=== PATIENT | female | born 1950 | race Caucasian/White ===

== ENCOUNTER 2017-02-26 17:05 | Emergency (ER) | payer OTHER ==
[~2017-02-26] VITALS: Ht 170.2 cm; Wt 75.0 kg
[~2017-02-26 17:05] MED LIST: BACL10TA PO; BLOOD PRESSURE MED PO; DICL75 PO; LEVO.075 PO
[2017-02-26 17:07] VITALS: BP 196/93; PULSE 88; RESP 20; TEMP 97.9; O2SAT 97
--- NOTE | 2017-02-26 17:12 | PD ---
Physical Exam Time Seen by Provider: 17:09 Narrative 66yo F c/o high BP for 2-3 days. Has been taking BP medication as prescribed. +[place], dizziness, chest pain, SOB. Patient seen in triage. VS reviewed. Awaiting bed placement. Data Data Last Documented VS Vital Signs Date Time Temp Pulse Resp B/P (MAP) Pulse Ox O2 Delivery O2 Flow Rate FiO2 02/26/17 17:07 97.9 88 20 196/93 (127) 97 Room Air MDM Supervised Visit with SHITAL: Karina Damon Feb 26, 2017 17:12
[2017-02-26] MEDS ORDERED: SODIUM CHLORIDE 0.9% FLUSH 10 ML FLUSH IVF PRN (17:15)
[2017-02-26 18:02] VITALS: BP 165/69; PULSE 74; RESP 18; TEMP 98.2; O2SAT 98
[2017-02-26 18:08] VITALS: O2SAT 98
[2017-02-26 18:13] LABS: BASOPHIL % 0.2 % (0.0-2.0); EOSINOPHIL # 0.2 TH/MM3 (0-0.4); EOSINOPHIL % 1.8 % (0.0-4.0); HEMATOCRIT 41.2 % (35.0-46.0); HEMO FLAGS DIFF FINAL; LYMPH % 30.9 % (9.0-44.0); MEAN CELL VOLUME 89.7 FL (80.0-100.0); MEAN CORPUSCULAR HEMOGLOBIN 31.3 PG (27.0-34.0); MEAN CORPUSCULAR HGB CONC 34.9 % (32.0-36.0); NEUT % 61.1 % (16.0-70.0); PLATELET COUNT 215 TH/MM3 (150-450); RED CELL DISTRIBUTION WIDTH 12.7 % (11.6-17.2); WHITE BLOOD COUNT 9.8 TH/MM3 (4.0-11.0)
--- NOTE | 2017-02-26 18:19 | RADRPT ---
EXAM DATE/TIME: 02/26/2017 17:21 [facility] COMPARISON: No previous studies available for comparison. INDICATIONS : Chest pain MEDICAL HISTORY : Hypertension. Hypothyroidism. SURGICAL HISTORY : None. ENCOUNTER: Initial ACUITY: 2 days PAIN SCORE: 0/10 LOCATION: chest FINDINGS: A single view of the chest demonstrates the lungs to be symmetrically aerated without evidence of mas s, fluid infiltrate or effusion. Mild streaky opacity at the lung bases. The cardiomediastinal contou rs are unremarkable. Osseous structures are intact. CONCLUSION: Streaky opacity at the lung bases most characteristic of atelectasis. Carlitos Shah MD on February 26, 2017 at 18:17 Board Certified Radiologist. This report was verified electronically.
[2017-02-26 18:20] LABS: APTT (PATIENT) 26.2 SEC (24.3-30.1); PROTHROMBIN TIME - PATIENT 10.6 SEC (9.8-11.6)
[2017-02-26] MEDS ORDERED: PROCHLORPERAZINE INJ 10 MG/2 ML VIAL IV PUSH ONE (18:30)
[2017-02-26] MEDS ORDERED: diphenhydrAMINE HCL 50 MG/ML VIAL IV PUSH ONE (18:30)
[2017-02-26 18:32] LABS: ANION GAP 7 MEQ/L (5-15); BICARBONATE 29.8 MEQ/L (21.0-32.0); BLOOD UREA NITROGEN 17 MG/DL (7-18); CHLORIDE 101 MEQ/L (98-107); GLOMERULAR FILTRATION RATE 55 ML/MIN (>89); MAGNESIUM 2.1 MG/DL (1.5-2.5); SODIUM (NA) 138 MEQ/L (136-145)
[2017-02-26 18:35] LABS: CREATINE KINASE 62 U/L (26-192)
--- NOTE | 2017-02-26 18:56 | PD ---
HPI . Headache Chief Complaint: Hypertension Time Seen by Provider: 18:11 Travel History International Travel<30 days: No Contact w/Intl Traveler<30days: No Traveled to known affect area: No History of Present Illness HPI This patient presents to us with a several day history of headache and dizziness. She states that her head feels like pressure. She states that she feels short of breath and nervous. She is concerned about her blood pressure. She states that she does take blood pressure medication and has been compliant with it. Force no noted modifying factors. She states her headache is actually very mild. PFSH Past Medical History Arthritis: Yes Diminished Hearing: No GERD: Yes Hypertension: Yes Immunizations Current: Yes Thyroid Disease: Yes (HYPOTHYROIDISM) Menopausal: Yes Past Surgical History Hysterectomy: Yes Social History Alcohol Use: Yes (SOCIALLY- MIX DRINKS) Tobacco Use: No (QUIT 8 YRS AGO SMOKED APPROX 1/2 PPD) Substance Use: No Allergies-Medications (Allergen,Severity, Reaction): Coded Allergies: No Known Allergies (Verified , 02/26/17) Reported Meds & Prescriptions Reported Meds & Active Scripts Active Lioresal (Baclofen) 10 Mg Tab 10 Mg PO TID 7 Days Diclofenac Sodium 75 Mg Tab 75 Mg PO BID PRN Reported [Blood Pressure Med] Unknown Strength Unknown Dose PO DAILY Synthroid (Levothyroxine Sodium) 75 Mcg Tab 75 Mcg PO DAILY Review of Systems Except as stated in HPI: all other systems reviewed are Neg Eyes: No: Blurred Vision HENT: Positive: Headaches Respiratory: Positive: Shortness of Breath Psychiatric: Positive: Anxiety Physical Exam Narrative GENERAL: This patient looks very nervous SKIN: warm/dry. HEAD: Normocephalic. EYES: Pupils equal and round. No scleral icterus. No injection or drainage. ENT: No nasal bleeding or discharge. Mucous membranes pink and moist. NECK: Trachea midline. Full range of motion without pain.. CARDIOVASCULAR: Regular rate and rhythm. Heart sounds are normal. RESPIRATORY: No accessory muscle use. Clear to auscultation. Breath sounds equal bilaterally. GASTROINTESTINAL: Abdomen soft. Nontender. Bowel sounds present. Nondistended. . MUSCULOSKELETAL: No obvious deformities. NEUROLOGICAL: Awake and alert. No obvious cranial nerve deficits. Motor grossly within normal limits. Normal speech. PSYCHIATRIC: Appropriate mood and affect; insight and judgment normal. Data Data Last Documented VS Vital Signs Date Time Temp Pulse Resp B/P (MAP) Pulse Ox O2 Delivery O2 Flow Rate FiO2 02/26/17 18:08 98 Room Air 02/26/17 18:02 98.2 74 18 Orders Orders Electrocardiogram (02/26/17 17:12) Basic Metabolic Panel (Bmp) (02/26/17 17:12) Ckmb (Isoenzyme) Profile (02/26/17 17:12) Complete Blood Count With Diff (02/26/17 17:12) Magnesium (Mg) (02/26/17 17:12) Prothrombin Time / Inr (Pt) (02/26/17 17:12) Act Partial Throm Time (Ptt) (02/26/17 17:12) Troponin I (02/26/17 17:12) Chest, Single Ap (02/26/17 17:12) Ecg Monitoring (02/26/17 17:12) Iv Access Insert/Monitor (02/26/17 17:12) Oximetry (02/26/17 17:12) Oxygen Administration (02/26/17 17:12) Sodium Chloride 0.9% Flush (Ns Flush) (02/26/17 17:15) Prochlorperazine Inj (Compazine Inj) (02/26/17 18:30) Diphenhydramine Inj (Benadryl Inj) (02/26/17 18:30) Labs Laboratory Tests Test 02/26/17 17:35 White Blood Count 9.8 TH/MM3 Red Blood Count 4.60 MIL/MM3 Hemoglobin 14.4 GM/DL Hematocrit 41.2 % Mean Corpuscular Volume 89.7 FL Mean Corpuscular Hemoglobin 31.3 PG Mean Corpuscular Hemoglobin Concent 34.9 % Red Cell Distribution Width 12.7 % Platelet Count 215 TH/MM3 Mean Platelet Volume 10.3 FL Neutrophils (%) (Auto) 61.1 % Lymphocytes (%) (Auto) 30.9 % Monocytes (%) (Auto) 6.0 % Eosinophils (%) (Auto) 1.8 % Basophils (%) (Auto) 0.2 % Neutrophils # (Auto) 6.0 TH/MM3 Lymphocytes # (Auto) 3.0 TH/MM3 Monocytes # (Auto) 0.6 TH/MM3 Eosinophils # (Auto) 0.2 TH/MM3 Basophils # (Auto) 0.0 TH/MM3 CBC Comment DIFF FINAL Differential Comment Prothrombin Time 10.6 SEC Prothromb Time International Ratio 1.0 RATIO Activated Partial Thromboplast Time 26.2 SEC Blood Urea Nitrogen 17 MG/DL Creatinine 1.02 MG/DL Random Glucose 144 MG/DL Calcium Level 9.3 MG/DL Magnesium Level 2.1 MG/DL Sodium Level 138 MEQ/L Potassium Level 4.0 MEQ/L Chloride Level 101 MEQ/L Carbon Dioxide Level 29.8 MEQ/L Anion Gap 7 MEQ/L Estimat Glomerular Filtration Rate 55 ML/MIN Total Creatine Kinase 62 U/L Troponin I LESS THAN 0.02 NG/ML MDM Medical Decision Making Medical Screen Exam Complete: Yes Emergency Medical Condition: Yes Medical Record Reviewed: Yes (EKG shows a normal sinus rhythm with no acute ischemic changes. She does have a lot of artifact consistent with trembling) Differential Diagnosis Differential diagnosis of headache includes but is not limited to migraine, muscle contraction headache, brain tumor, brain bleed Narrative Course This patient presents complaining with a pressure in her head and dizziness. She is very anxious. Last Impressions Chest X-Ray 02/26/17 [id number] Signed Impressions: Service Date/Time: January 17:21 - CONCLUSION: Streaky opacity at the lung bases most characteristic of atelectasis. Carlitos Shah MD CBC & BMP Diagram 02/26/17 17:35 Calcium Level 9.3, Magnesium Level 2.1 Cardiac enzymes negative. The history, exam, diagnostic testing, and current condition do not suggest any significant pathology to warrant further testing, continued ED treatment, admission, or surgical evaluation at this point. The patient's condition is stable and appropriate for discharge. Diagnosis Primary Impression: Headache Qualified Codes: G44.209 - Tension-type headache, unspecified, not intractable Additional Instructions: See your primary care provider sometime within the next few days. Disposition: 01 DISCHARGE HOME Condition: Stable Lydia Hutchinson MD Feb 26, 2017 18:56
--- NOTE | 2017-02-28 01:06 | EKG ---
Date Performed: 02/26/2017 Time Performed: 17:36:29 PTAGE: 66 years EKG: Sinus rhythm NONSPECIFIC T-WAVE ABNORMALITY BORDERLINE ECG PREVIOUS TRACING : 10/13/2011 11.39 Compared to prior tracing no significant change DOCTOR: Gurmeet Mays Interpretating Date/Time 02/28/2017 01:04:34
== END 2017-02-26 19:20 | disposition home or self-care (01) ==
LOC: NEPE 17:05
DX: G44.209 Tension-type headache, unspecified, not intractable (principal); I10 Essential (primary) hypertension; E03.9 Hypothyroidism, unspecified; K21.9 Gastro-esophageal reflux disease without esophagitis; M19.90 Unspecified osteoarthritis, unspecified site; Z79.899 Other long term (current) drug therapy; R07.9 Chest pain, unspecified; F41.9 Anxiety disorder, unspecified
CPT/HCPCS: 71010; 80048; 82550; 83735; 84484; 85025; 85610; 85730; 93005; 96374; 96375; 99285; J0780; J1200

== ENCOUNTER 2018-05-03 07:52 | Inpatient (IN) ==
[2018-05-03] MEDS ORDERED: Chlorhexidine Gluconate 2% 1 Pack (2 Cloths) TOPICAL ONE (08:45)
[2018-05-03] MEDS ORDERED: Sodium Chlor 0.9% Inj 500 ML IV.CONT ONE (08:45)
[2018-05-03] MEDS ORDERED: Metoprolol Tartrate 25 MG Tablet PO ONE (08:45)
[2018-05-03] MEDS ORDERED: Chlorhexidine 4% Topical 120 APPLIC/120 ML Bottle TOPICAL SCH (08:45)
[2018-05-03] MEDS ORDERED: TRANEXAMIC ACID IV.SIG SCH ×2 (09:00→12:00)
[2018-05-03] MEDS ORDERED: SODIUM CHLOR 0.9% IV.SIG SCH ×2 (09:00→12:00)
[2018-05-03] MEDS ORDERED: Sodium Chlor 0.9% Inj 80 ML, Bupivacaine Liposo PF 1.3% Inj 20 ML P-ARTICULR SCH ×2 (09:00)
[2018-05-03] MEDS ORDERED: ceFAZolin 2 GM Premix Inj 2 GM/50 ML PIGGYBACK IV.SIG SCH (09:00)
[2018-05-03] MEDS ORDERED: Melatonin 5 MG Tablet PO PRN (09:30)
[2018-05-03] MEDS ORDERED: Bupivacaine/Dextrose 0.75% Inj 2 ML Ampul ONE (09:33)
[2018-05-03] MEDS ORDERED: Bisacodyl 10 MG Supp RECTAL PRN (09:34)
[2018-05-03] MEDS ORDERED: Post-op Orders (for Pharmacy) OTHER STA (09:34)
[2018-05-03] MEDS ORDERED: Zolpidem Tartrate 5 MG Tablet PO PRN (09:34)
[2018-05-03] MEDS ORDERED: Tranexamic Acid Inj 0 MG in Sodium Chlor 0.9% Inj 100 ML IV.SIG ONE (09:34)
[2018-05-03] MEDS ORDERED: Aluminum/Magnesium/Simethacone Susp 30 ML UDC PO PRN (09:34)
[2018-05-03] MEDS ORDERED: Acetaminophen 325 MG Tablet PO PRN (09:34)
[2018-05-03] MEDS ORDERED: Morphine Inj 4 MG/ML Vial IV.PUSH PRN (09:34)
--- NOTE | 2018-05-03 09:39 | P.DCO ---
- Physical Therapy Physical Therapy: Gait training Knee: Total knee, Protocol: Left, Full weight bearing Left Lower Extremity Weight Bearing: Weight bearing as tolerated Left Lower Extremity Range of Motion: Active ROM (Active, active assisted, passive range of motion. Range of motion goal is 0 degrees extension to 135 degrees of flexion.) - Nursing Nursing: Dressing changes Dressing changes: Daily dressing change, Coverderm/Primapore Additional instructions: Do not remove Dermabond Prineo (the tape that is directly on the wound). Leave the Optifoam dressing in place for 7 days. After this, daily dressing changes will be done taking care to avoid injuring or removing the Dermabond Prineo. - Certification Need for Home Health services: I have seen patient Cristal Perez on 05/03/18. My clinical findings support the need for the requested home health care services because: Need for Home Health Services: Limited ability to care for self, High risk of falls Homebound Certification: I certify that my clinical findings support that this patient is homebound because: Homebound Certification: Post-op weakness, Unsteady gait/balance, Unsafe to leave home unassisted
[2018-05-03] MEDS ORDERED: Propofol Inj 500 MG/50 ML Vial ONE (09:50)
--- NOTE | 2018-05-03 12:50 | P.OP ---
- Preoperative Diagnosis (1) Primary osteoarthritis of left knee - Postoperative Diagnosis (1) Primary osteoarthritis of left knee Date of procedure: 05/03/18 Procedure: Left total knee arthroplasty using Harper Triathlon prosthesis (uncemented). Anesthesia: regional (Adductor canal block), local (Exparel), spinal Surgeon: Alex Gagnon MD Lay Out Worker: FARSHAD Forrest Estimated blood loss (mL): 150 Pathology: none sent Operation and Findings: Indications and Findings: This 67-year-old woman has had long-standing left knee pain nonresponsive to conservative measures and prior arthroscopy. She has known rheumatoid arthritis. She has been taking anti-inflammatory agents of various types, corticosteroids orally, has had intra-articular corticosteroids and has tried exercises and ambulatory aids without benefit. Her ambulation tolerance is 1 block. She has pain with activities of daily living, especially standing from a seated position, descending stairs and descending stairs and entering and exiting a vehicle. Physical findings showed laxity in the medial compartment with crepitation on range of motion, tenderness on motion and medial tenderness. X-rays show severe loss of articular cartilage down to [id number] in the medial compartment with osteophytes and subchondral sclerosis medially. There are osteophytes throughout the knee. Operative findings: The left knee had severe loss of articular cartilage down to exposed subchondral bone with osteophytes throughout the knee, subchondral sclerosis in the medial compartment especially and some synovial proliferation. The prosthesis used was a Harper Triathlon prosthesis. The femur was a size 3, uncemented, cruciate retaining. The tibial baseplate was a size 3 Tritanium with a 9 mm, X3 polyethylene, cruciate retaining spacer. The patella was a size 32 mm asymmetric Tritanium backed. The patient was brought to the clean-air operating suite after administration of a regional anesthetic by adductor canal block. A spinal anesthetic was administered. The position was supine with a small bolster under the hip on the operative side. A pneumatic tourniquet was applied to the upper thigh. The lower extremity was prepped with alcohol, Hibiclens and ChloraPrep and draped in the usual manner with the knee draped free. An appropriate timeout procedure was carried out. An incision was made from about 3 fingerbreadths above the superior medial pole of patella down the tibial tubercle on the medial side. The incision was deepened through the subcutaneous tissue to the retinacular structures which were exposed medially and laterally. A medial retinacular incision was made from the superior medial pole of patella down the tibial tubercle and up into the quadriceps tendon, splitting it longitudinally in the medial one third. The patella was reflected. The infrapatellar fat pad was debulked. The anterior cruciate ligament was excised. Medial and lateral meniscectomies were initiated. Fenestrations were made in the distal femur and proximal tibia for intramedullary referencing guides. The distal femoral cutting guide and jig were assembled for a 5, 8 mm cut. When this was fit into position,the cutting block was stabilized with pins. The jig was removed. The distal femoral cut was completed with the oscillating saw. The sizing guide was positioned in place along Whitesides line and the epicondylar axis and stabilized with pins. The femoral size was determined as noted above. The 4-in-1 cutting block was positioned in place. Anterior and posterior cuts were made followed by posterior and anterior chamfer cuts taking care to prevent injury to ligamentous structures. Osteophytes were trimmed from the distal femur. A bone plug was placed into the fenestration of the distal femur. The proximal tibia was exposed. The medial and lateral meniscectomies were completed. The proximal tibial cutting guide was positioned in place and stabilized with a pin for rotation. The depth of cut was verified with a stylus off the high side. The cutting block was stabilized with pins. The jig was removed. The depth of cut was verified and adjusted appropriately with the use of the spacer block. The proximal tibial cut was made with the oscillating saw taking care to prevent injury to neurovascular and ligamentous structures. Proximal tibial bone was removed. Local anesthetic was administered with Exparel in the posterior capsule. The tibial baseplate trial was positioned in place. After verifying the appropriate size, the base plate trial was positioned in place along with its spacer. The femoral component was impacted into place. The alignment was checked. The tibial baseplate was pinned in place on the tibia. Attention was directed to the patella. The patella drill guide was positioned in place for the appropriate sized patella. Patellar drilling was then carried out. The trial patella was positioned in place. The knee was taken through a range of motion which was easily 0 extension to 145 degrees with pressure and 140 degrees by gravity. The patella trial was removed. The femoral drill holes were made. The femoral trials were removed. The tibial spacer was removed. A bone plug was placed into the proximal tibia. The tibial punch was impacted through the proximal tibial punch guide. This was all removed followed by placement of the tibial drill guide. The tibial drill holes were made. The guide was removed. The cut ends of bone were cleaned with pulse lavage. The tibial baseplate was impacted into place and seated appropriately. The spacer was inserted. The the femoral component was impacted into place and seated appropriately. The patella component was seated with the patellar vice and tightened appropriately. The knee was taken through a range of motion which was comparable to the previous range of motion with excellent stability in flexion and extension and appropriate patellofemoral tracking. The remainder of the Exparel was injected throughout the knee as a local anesthetic. Drains were brought out the superior lateral aspect of the suprapatellar pouch. Wound closure commenced using 0 Vicryl interrupted [id number] sutures for the capsular and fascial structures, 2-0 Vicryl interrupted simple sutures with buried knots for the subcutaneous tissues and 4-0 Monocryl, continuous subcuticular closure for the skin. The wound was dressed with Dermabond Prineo followed by a dry sterile dressing. Sterile soft roll with a cooling pad and Iam bandage from the base of the toes to mid thigh were applied. Patient was transferred from the operating room to the recovery room in satisfactory condition having tolerated procedure well. Counts were correct. Specimens: None. Estimated blood loss: 150 mL
[2018-05-03] MEDS ORDERED: fentaNYL Citrate Inj 100 MCG/2 ML Ampul ONE (13:32)
--- NOTE | 2018-05-03 14:07 | XR ---
EXAM DATE: 05/03/2018 1:55 PM EST AGE/SEX: 67 years / Female INDICATIONS: Post op left knee. CLINICAL DATA: This is the patient's initial encounter. Patient reports that signs and symptoms have been present for 1 day and indicates a pain score of Nonresponsive. MEDICAL/SURGICAL HISTORY: None. None. COMPARISON: POI, XR KNEE COMPLETE, LEFT, 04/13/2018. . FINDINGS: Views of the left knee demonstrates left knee arthroplasty. Drain is seen anteriorly. No hardware loo sening or fracture CONCLUSION: Left knee arthroplasty. Electronically signed by: Saul Schroeder MD 05/03/2018 2:06 PM EST
[2018-05-03] MEDS: Ketorolac Inj 30 MG/ML (IVP) Vial IV.PUSH SCH ×3 (14:29→23:00)
--- NOTE | 2018-05-03 15:48 | P.CON ---
History of Present Illness Service: [facility] Hospitalist service Consult date: 05/03/18 Requesting Physician: Alex Gagnon Reason for Consult: Medical management and postop evaluation post total knee replacement Primary Care Provider: Erinn Wadsworth DO Chief Complaint: Elective surgery for right knee pain History of Present Illness: Patient is a very pleasant 67-year-old female with known history of hypertension , GERD, hypothyroidism, rheumatoid arthritis on methotrexate, who is admitted under Dr. Gagnon service today and underwent left complete total knee replacement. Patient has history of knee replacement in 2006. Patient apparently has been having increasing pain on this knee for the past couple of months now and on outpatient evaluation was noted to be bone to bone. Increasing difficulty in ambulation and mainly pain which prompted the surgery. Patient currently seen postop in her room is awake alert no complaints of pain at present. Very motivated with physical therapy. States her primary care physician is Dr. Wadsworth from [place]. She has history of rheumatoid arthritis followed by Dr. Boyle.. She is on methotrexate 6 pills once a week and has been on hold prior to surgery. She is also taking 2 pain meds at home for pain control History of smoking quit 11 years ago very occasional rare alcohol use, history of hysterectomy 1998 had Review of Systems Denies any fever chills chest pain or shortness of breath denies any melena or hematochezia or any bleeding tendencies patient baseline is ambulatory independently however lately has been using a cane because of increasing pain of left knee when walking PMF - History History Provided By: Patient - Medical History Medical History: Medical History (Last Reviewed 05/03/18 @ 13:02 by Ivet Prabhakar) Arthritis GERD (gastroesophageal reflux disease) Hx of hysterectomy Hypertension Hypothyroidism Pain in knee joint Rheumatoid arthritis - Surgical History Surgical History: Surgical History (Last Reviewed 05/03/18 @ 13:02 by Ivet Prabhakar) History of arthroscopy of left knee Hx of cataract removal with insertion of prosthetic lens - Tobacco History Second Hand Smoke Exposure: No Smoking Status: Former smoker - Alcohol History How Often Do You Have a Drink Containing Alcohol: 2 to 3 times a week - Substance Use History Substance History: No History of Abuse - Travel History Recent Travel in the [facility] Within the Last 8 Weeks: No Recent Travel Out of the Country Within the Last 8 Weeks: No Medications and Allergies Active Medications: Active Medications Acetaminophen (Tylenol) 650 mg PO Q6H PRN PRN Reason: Pain Less Than 3 On Scale Hydrocodone Bitart/Acetaminophen ([place] 7.5/325) 1 tab PO Q4H PRN PRN Reason: PAIN SCALE 4 TO 6 MODERATE Hydrocodone Bitart/Acetaminophen ([place] 7.5/325) 2 tab PO Q6H PRN PRN Reason: PAIN SCALE 7 TO 10 SEVERE Al Hydrox/Mg Hydrox/Simethicone (Mag-Al Plus Susp Liq) 30 ml PO Q6H PRN PRN Reason: INDIGESTION Al Hydroxide/Mg Hydroxide (Milk Of Magnesia Liq) 30 ml PO BID PRN PRN Reason: Mild Constipation Ascorbic Acid (Vitamin C) 1,000 mg PO DAILY [facility] Aspirin (Aspirin Chew) 81 mg PO BID [facility] Bisacodyl (Dulcolax Supp) 10 mg RECTAL DAILY PRN PRN Reason: SEVERE CONSITIPATION Chlorhexidine Gluconate (Hibiclens 4% Topical) 1 applicatio TOPICAL ONCE [facility] Stop: 05/07/18 08:44 Last Admin: 05/03/18 08:05 Dose: 1 applicatio Diphenhydramine HCl (Benadryl) 25 mg PO Q6H PRN PRN Reason: ITCHING Folic Acid (Folic Acid) 1 mg PO DAILY [facility] Furosemide (Lasix) 20 mg PO DAILY [facility] Cefazolin Sodium/Dextrose (Ancef 2 Gm Premix Inj) 2 gm in 50 mls @ 100 mls/hr IV.SIG CUSTOM HOME INSTALLER [facility] Stop: 05/07/18 08:59 Last Infusion: 05/03/18 11:32 Dose: Infused Tranexamic Acid 852 mg/ Sodium (Chloride) 108.52 mls @ 200 mls/hr IV.SIG ONCE [facility] Stop: 05/03/18 18:00 Last Infusion: 05/03/18 14:35 Dose: Infused Cefazolin Sodium/Dextrose (Ancef 1 Gm Premix Inj) 1 gm in 50 mls @ 100 mls/hr IV.SIG Q6H [facility] Stop: 05/04/18 05:29 Lactated Ringer's (Lr 1000 Ml Inj) 1,000 mls @ 80 mls/hr IV.CONT .[id number] [facility] Last Admin: 05/03/18 13:00 Dose: Not Given Ketorolac Tromethamine (Toradol Inj) 15 mg IV.PUSH Q6H [facility] Stop: 05/05/18 03:46 Last Admin: 05/03/18 14:29 Dose: Not Given Lactulose (Lactulose Liq) 30 ml PO DAILY PRN PRN Reason: SEVERE CONSITIPATION Levothyroxine Sodium (Synthroid) 112 mcg PO DAILY@0600 [facility] Lisinopril (Prinivil) 20 mg PO HS [facility] Melatonin (Melatonin) 5 mg PO HS PRN PRN Reason: Insomnia Miscellaneous Information ([facility] Information) 1 each OTHER UNSCH PRN PRN Reason: SEE LABEL COMMENTS Stop: 05/04/18 13:21 Morphine Sulfate (Morphine Inj) 2 mg IV.PUSH Q3H PRN PRN Reason: BREAKTHROUGH PAIN Multivitamins/Minerals (Theragran-M) 1 tab PO DAILY [facility] Ondansetron HCl (Zofran Odt) 4 mg PO Q6H PRN PRN Reason: NAUSEA OR VOMITING Pantoprazole Sodium (Protonix) 20 mg PO BID [facility] Potassium Chloride (K-Dur) 20 meq PO BID [facility] Prednisone (Deltasone) 5 mg PO DAILY [facility] Senna/Docusate Sodium (Wilma-Colace) 1 tab PO BID [facility] Sennosides (Senokot) 17.2 mg PO BID PRN PRN Reason: Moderate Constipation Sodium Chloride (Ns Flush) 2 ml IV.FLUSH BID [facility] Sodium Chloride (Ns Flush) 2 ml IV.FLUSH PRN PRN PRN Reason: FLUSH AFTER USING IV ACCESS Vitamin B Complex/Vitamin C (Allbee C) 1 tab PO DAILY [facility] Zolpidem Tartrate (Ambien) 5 mg PO HS PRN PRN Reason: INSOMNIA Allergies Allergy/AdvReac Type Severity Reaction Status Date / Time No Known Allergies Allergy Verified 05/03/18 08:25 Home Medications Medication Instructions Recorded Confirmed Type ascorbic acid (vitamin C) [Vitamin 1,000 mg PO DAILY 04/22/18 05/03/18 History C] folic acid 1 mg PO DAILY 04/22/18 05/03/18 History furosemide 20 mg PO DAILY 04/22/18 05/03/18 History garlic 1,000 mg PO DAILY 04/22/18 05/03/18 History glucosamine sulfate [Glucosamine] 500 mg PO BID 04/22/18 05/03/18 History levothyroxine 112 mcg PO DAILY 04/22/18 05/03/18 History lisinopril 20 mg PO HS 04/22/18 05/03/18 History melatonin 5 mg PO HS PRN 04/22/18 05/03/18 History methotrexate sodium 15 mg PO QWEEK 04/22/18 05/03/18 History jcorbcjmymyf-nna-mjpx-FA-vit K 1 tab PO DAILY 04/22/18 05/03/18 History [Adults Multivitamin] nabumetone 500 mg PO HS 04/22/18 05/03/18 History naproxen 500 mg PO BID PRN 04/22/18 05/03/18 History omega 4-ylh-wqh-fish oil [Fish Oil] 2 cap PO DAILY 04/22/18 05/03/18 History omeprazole 20 mg PO BID 04/22/18 05/03/18 History potassium chloride [K-Tab] 20 meq PO BID 04/22/18 05/03/18 History prednisone 5 mg PO DAILY 04/22/18 05/03/18 History vitamin B comp with C no.4 [Super 1 tab PO DAILY 04/22/18 05/03/18 History B Complex + C] Physical Exam Vital signs: Vital Signs 05/03/18 08:33 05/03/18 09:02 05/03/18 09:40 Temperature 98.1 F Pulse Rate 81 75 68 Respiratory Rate 18 16 Blood Pressure 134/73 117/63 Pulse Oximetry 97 95 97 05/03/18 13:23 05/03/18 13:30 05/03/18 13:45 Temperature 97.6 F Pulse Rate 66 67 68 Respiratory Rate 18 18 18 Blood Pressure 114/63 111/61 115/71 Pulse Oximetry 95 98 98 05/03/18 14:00 05/03/18 14:15 05/03/18 14:22 Temperature Pulse Rate 66 66 Respiratory Rate 18 18 Blood Pressure 125/64 131/69 Pulse Oximetry 95 94 L 100 05/03/18 14:30 05/03/18 15:00 Temperature 98.3 F Pulse Rate 66 67 Respiratory Rate 19 19 Blood Pressure 139/67 136/68 Pulse Oximetry 97 97 Intake & Output 05/02/18 05/03/18 05/03/18 18:59 06:59 18:59 Intake Total 1767.04 / 1767.04 Output Total 220 / 220 Balance 1547.04 / 1547.04 Weight 85.2 kg Intake: IV 1267.04 / 1267.04 LR 1000 mL Inj 1,000 ML @ 30 1000 / 1000 mls/hr IV.CONT .Q24H [facility] Rx#: [id number] Cyklokapron Inj 852 MG In NS 217.04 / 217.04 Inj 100 ML @ 200 mls/hr IV.SIG ONCE [facility] Rx#:[id number] Ancef 2 GM Premix Inj 2 gm In 50 / 50 50 ml @ 100 mls/hr IV.SIG CUSTOM HOME INSTALLER [facility] Rx#:[id number] Anesthesia Amount 500 / 500 Output: Estimated Blood Loss 150 / 150 Wound Drainage 70 / 70 # 1 Left Knee Hemovac 70 / 70 Other: Weight On Admission 85.2 kg Narrative: Awake alert oriented x3 not in any form of distress blood pressure 131/68 heart rate of 69 temperature 98.3 HEENT exam anicteric sclerae pink palpebral conjunctiva moist oral mucosa Neck supple no nuchal rigidity Bilateral breath sounds equal no rales no wheezes Regular rhythm Abdomen is soft nontender with good bowel sounds Extremities. Left knee with postop dressing in place Moves both feet equally. Grossly no sensory deficit gait testing deferred Assessment and Plan - Plan 67-year-old female Status post left total knee replacement Management per orthopedic surgery. Pain management per primary service PT daily History of hypertension continue on lisinopril 20 mg at bedtime. Furosemide 20 mg daily. Potassium supplements History of hypothyroidism. Continue on Synthroid 112 mcg daily GERD continue on omeprazole 20 mg twice a day History of rheumatoid arthritis on methotrexate once a week as OP Continue on prednisone 5 mg daily maintenance dose. Outpatient follow-up with Dr. Cali - her host DVT prophylaxis aspirin 81 mg twice daily per orthopedic service Thank you for this consult will follow patient in-house with you Discharge planning. Patient plans to go home with home health care
[2018-05-03] MEDS: ceFAZolin 1 GM Premix Inj 1 GM/50 ML FROZ.PIGGY IV.SIG SCH (17:59)
[2018-05-03] MEDS: Senna/Docusate Sodium 8.6/50 MG Tablet PO SCH (20:35)
[2018-05-03] MEDS: Pantoprazole Sodium 20 MG DR Tablet PO SCH (20:35)
[2018-05-03] MEDS ORDERED: Non-Formulary Drug (Glucosamine Sulfate [Glucosamine] 500 MG) PO SCH (21:00)
[2018-05-03] MEDS ORDERED: Lisinopril 20 MG Tablet PO SCH (21:00)
[2018-05-04] MEDS: ceFAZolin 1 GM Premix Inj 1 GM/50 ML FROZ.PIGGY IV.SIG SCH ×2 (00:18→04:40)
[2018-05-04] MEDS: Ketorolac Inj 30 MG/ML (IVP) Vial IV.PUSH SCH ×3 (04:00→17:45)
--- NOTE | 2018-05-04 05:59 | P.PNOP ---
Subjective Interval history: Postop day #1 She is doing well. She has minimal complaints related to the knee. Has been out of bed walking at least 3 times. Physical therapy reports that the ambulation distance was 30 feet. The range of motion was -5 degrees of extension to 40 degrees of flexion. Physical Exam Vital signs: Vital Signs 05/03/18 08:33 05/03/18 09:02 05/03/18 09:40 Temperature 98.1 F Pulse Rate 81 75 68 Respiratory Rate 18 16 Blood Pressure 134/73 117/63 Pulse Oximetry 97 95 97 05/03/18 13:23 05/03/18 13:30 05/03/18 13:45 Temperature 97.6 F Pulse Rate 66 67 68 Respiratory Rate 18 18 18 Blood Pressure 114/63 111/61 115/71 Pulse Oximetry 95 98 98 05/03/18 14:00 05/03/18 14:15 05/03/18 14:22 Temperature Pulse Rate 66 66 Respiratory Rate 18 18 Blood Pressure 125/64 131/69 Pulse Oximetry 95 94 L 100 05/03/18 14:30 05/03/18 15:00 05/03/18 19:35 Temperature 98.3 F 97.9 F Pulse Rate 66 67 79 Respiratory Rate 19 19 17 Blood Pressure 139/67 136/68 130/70 Pulse Oximetry 97 97 94 L 05/04/18 00:15 Temperature 97.6 F Pulse Rate 75 Respiratory Rate 17 Blood Pressure 140/69 Pulse Oximetry 95 Intake & Output 05/03/18 05/03/18 05/04/18 06:59 18:59 06:59 Intake Total 1817.04 / 1817.04 50 / 50 Output Total 220 / 220 Balance 1597.04 / 1597.04 50 / 50 Weight 85.2 kg Intake: IV 1317.04 / 1317.04 50 / 50 LR 1000 mL Inj 1,000 ML @ 30 1000 / 1000 mls/hr IV.CONT .Q24H [facility] Rx#: [id number] Cyklokapron Inj 852 MG In NS 217.04 / 217.04 Inj 100 ML @ 200 mls/hr IV.SIG ONCE [facility] Rx#:[id number] Ancef 1 GM Premix Inj 1 gm In 50 / 50 50 / 50 50 ml @ 100 mls/hr IV.SIG Q6H [facility] Rx#:[id number] Ancef 2 GM Premix Inj 2 gm In 50 / 50 50 ml @ 100 mls/hr IV.SIG LITIGATION LEGAL ASSISTANT [facility] Rx#:[id number] Anesthesia Amount 500 / 500 Output: Estimated Blood Loss 150 / 150 Wound Drainage 70 / 70 # 1 Left Knee Hemovac 70 / 70 Other: Date of Last Bowel Movement 05/02/18 Weight On Admission 85.2 kg Narrative: She is resting comfortably, supine in bed. The dressing is dry and intact. Her neurovascular status is intact. Results - Labs Laboratory Results - last 24 hr 05/03/18 08:31 Blood Type O Negative Blood Type Recheck Required Antibody Screen Negative - Imaging Impressions Knee X-Ray 05/03/18 09:30 CONCLUSION: Left knee arthroplasty. - Procedures Left total knee arthroplasty using [place] Triathlon prosthesis (uncemented) on 05/03/2018. Assessment and Plan - Ortho Post Op Day # 1 - Problem List (1) Status post total left knee replacement not using cement Code(s): Z96.652 - Presence of left artificial knee joint Status: Acute - Assessment and Plan Condition: Good. Orthopedically stable. DVT prophylaxis: TEDs, aspirin, sequentials. Discharge plans: Home with home health care. An appointment was scheduled through the office. Prescriptions: [place] 7.5/325; Patient is having significant pain caused by a total knee arthroplasty which will last more than 3 days. Trial of Tylenol has not helped. I believe that it is medically necessary to treat patients pain because it is affecting patients ability to participate in postoperative rehabilitation and perform activities of daily living in a comfortable and efficient manner. I have consulted [place] database prior to making this prescription.
[2018-05-04] MEDS ORDERED: Levothyroxine 112 MCG Tablet PO SCH (06:00)
--- NOTE | 2018-05-04 06:18 | P.DS ---
Date of admission: 05/03/18 09:29 Primary care physician: Erinn Wadsworth DO Attending physician on discharge: Alex Gagnon Anticipated date of discharge: 05/04/18 Brief History from admission: This 67-year-old woman has had long-standing rheumatoid arthritis. She has arthritis in her left knee that has been nonresponsive to conservative measures including anti-inflammatory agents, injections, ambulatory aids. Findings showed genu varum with tenderness in the medial compartment, medial instability , palpable osteophytes. X-rays showed severe arthritis in the knee with loss of articular cartilage to zhca-[id number]-iapp in the medial compartment, tricompartmental osteophytes, subchondral sclerosis. DS: Diagnosis - Discharge Diagnosis (1) Status post total left knee replacement not using cement Status: Acute Diagnosis: Principal (2) Primary osteoarthritis of left knee Status: Chronic Diagnosis: Principal (3) Rheumatoid arthritis involving both knees Status: Acute Diagnosis: Secondary DS: Medications - Discharge Medications Prescriptions: hydrocodone-acetaminophen 1 tab PO Q4H PRN 7 Days #42 tab PRN Reason: Pain DS: Summary Hospital Course: The patient was admitted as noted above. The above noted operative procedure was carried out that day. Preoperatively prophylactic antibiotics were administered Ancef according to protocol. These were continued postoperatively. The patient also received tranexamic acid to help with hemostasis according to protocol. In the postanesthesia care unit mechanical methods of DVT prophylaxis in the form of MARIA A stockings and sequentials were initiated. Physical therapy was initiated on the day of surgery. On postoperative day #1 physical therapy continued. DVT prophylaxis with aspirin 81 mg was initiated at this time. The patient continued physical therapy throughout the hospitalization. The distance walked and range of motion improved throughout the hospitalization. The patient was discharged on postoperative day 1 with the disposition being to home with home health care. An appointment for follow-up was made prior to admission. - Time Spent with Patient Total time spent providing and/or coordinating discharge services: Less than 30 minutes - Quality: VTE Deep Vein Thrombosis/Pulmonary Embolism Present on Admission: No Exam Vital signs: Vital Signs 05/03/18 08:33 05/03/18 09:02 05/03/18 09:40 Temperature 98.1 F Pulse Rate 81 75 68 Respiratory Rate 18 16 Blood Pressure 134/73 117/63 Pulse Oximetry 97 95 97 05/03/18 13:23 05/03/18 13:30 05/03/18 13:45 Temperature 97.6 F Pulse Rate 66 67 68 Respiratory Rate 18 18 18 Blood Pressure 114/63 111/61 115/71 Pulse Oximetry 95 98 98 05/03/18 14:00 05/03/18 14:15 05/03/18 14:22 Temperature Pulse Rate 66 66 Respiratory Rate 18 18 Blood Pressure 125/64 131/69 Pulse Oximetry 95 94 L 100 05/03/18 14:30 05/03/18 15:00 05/03/18 19:35 Temperature 98.3 F 97.9 F Pulse Rate 66 67 79 Respiratory Rate 19 19 17 Blood Pressure 139/67 136/68 130/70 Pulse Oximetry 97 97 94 L 05/04/18 00:15 05/04/18 04:50 Temperature 97.6 F 97.6 F Pulse Rate 75 72 Respiratory Rate 17 16 Blood Pressure 140/69 138/65 Pulse Oximetry 95 95 Intake & Output 05/03/18 05/03/18 05/04/18 06:59 18:59 06:59 Intake Total 1817.04 / 1817.04 50 / 50 Output Total 220 / 220 Balance 1597.04 / 1597.04 50 / 50 Weight 85.2 kg Intake: IV 1317.04 / 1317.04 50 / 50 LR 1000 mL Inj 1,000 ML @ 30 1000 / 1000 mls/hr IV.CONT .Q24H [facility] Rx#: [id number] Cyklokapron Inj 852 MG In NS 217.04 / 217.04 Inj 100 ML @ 200 mls/hr IV.SIG ONCE [facility] Rx#:[id number] Ancef 1 GM Premix Inj 1 gm In 50 / 50 50 / 50 50 ml @ 100 mls/hr IV.SIG Q6H [facility] Rx#:[id number] Ancef 2 GM Premix Inj 2 gm In 50 / 50 50 ml @ 100 mls/hr IV.SIG DATA SYSTEMS ANALYST [facility] Rx#:[id number] Anesthesia Amount 500 / 500 Output: Estimated Blood Loss 150 / 150 Wound Drainage 70 / 70 # 1 Left Knee Hemovac 70 / 70 Other: Date of Last Bowel Movement 05/02/18 Weight On Admission 85.2 kg Narrative: She is resting comfortably, supine in bed. Dressing is dry and intact. Her neurovascular status is intact. Results Procedures completed during hospitalization: Left total knee arthroplasty using [place] Triathlon prosthesis (uncemented) on 05/03/2018. Labs on day of discharge: Labs from last 24 hours 05/03/18 08:31 Blood Type O Negative Blood Type Recheck Required Antibody Screen Negative - Impressions ITS Impressions Knee X-Ray 05/03/18 09:30 CONCLUSION: Left knee arthroplasty. Discharge Plan - Discharge Disposition Patient Disposition: W/Home Health Service - Discharge Condition Condition: Stable - Discharge Order Discharge Orders: Discharge Order (Routine); Ordered 05/04/18 Ordered By: Alex Gagnon - Discharge Details Anticipated Discharge Date: 05/04/18 - Physicians Team Primary Care Provider: Erinn Wadsworth Attending Provider: Alex Gagnon Other Providers: [employer],Insurance ; Flo Orozco MD - Rxs /Orders / Referrals /Forms Prescriptions: New aspirin 81 mg Tablet,Chewable 81 mg PO BID RF: 0 hydrocodone-acetaminophen 7.5-325 mg Tablet 1 tab PO Q4H PRN (Reason: Pain) 7 Days Qty: 42 RF: 0 Continue ascorbic acid (vitamin C) [Vitamin C] 1,000 mg Tablet Extended Release 1,000 mg PO DAILY folic acid 1 mg Tablet 1 mg PO DAILY furosemide 20 mg Tablet 20 mg PO DAILY garlic 1,000 mg Capsule 1,000 mg PO DAILY glucosamine sulfate [Glucosamine] 500 mg Tablet 500 mg PO BID levothyroxine 112 mcg Tablet 112 mcg PO DAILY lisinopril 20 mg Tablet 20 mg PO HS melatonin 5 mg Tablet 5 mg PO HS PRN (Reason: Insomnia) methotrexate sodium 2.5 mg Tablet 15 mg PO QWEEK yhhdzhcrhbsu-rca-aenw-FA-vit K [Adults Multivitamin] 18 mg iron-400 mcg-25 mcg Tablet 1 tab PO DAILY nabumetone 500 mg Tablet 500 mg PO HS naproxen 500 mg Tablet 500 mg PO BID PRN (Reason: Pain) omega 8-nai-gqq-fish oil [Fish Oil] 1,000 mg (120 mg-180 mg) Capsule 2 cap PO DAILY omeprazole 20 mg Tablet,Delayed Release (Dr/Ec) 20 mg PO BID potassium chloride [K-Tab] 20 mEq Tablet Extended Release 20 meq PO BID prednisone 5 mg Tablet 5 mg PO DAILY vitamin B comp with C no.4 [Super B Complex + C] 150 mg Tablet 1 tab PO DAILY Referrals: Alex Gagnon MD [Physician] - See Instructions Erinn Wadsworth DO [Primary Care Provider] - See Instructions - Discharge Instructions Patient Printed Instructions: Knee Replacement (DC)
[2018-05-04 08:10] LABS: Hematocrit 34.3 % (35.0-46.0)
[2018-05-04] MEDS ORDERED: predniSONE 5 MG Tablet PO SCH (09:00)
[2018-05-04] MEDS ORDERED: Non-Formulary Drug (Omega 3-Dha-Epa-Fish Oil [Fish Oil] 2 CAP) PO SCH (09:00)
[2018-05-04] MEDS ORDERED: Folic Acid 1 MG Tablet PO SCH (09:00)
[2018-05-04] MEDS ORDERED: Vitamin B Complex/Vitamin C Tablet PO SCH (09:00)
[2018-05-04] MEDS ORDERED: GARLIC 1000 MG PO SCH (09:00)
[2018-05-04] MEDS ORDERED: Multivitamin/Minerals Therapeutic Tablet PO SCH (09:00)
[2018-05-04] MEDS ORDERED: Furosemide 20 MG Tablet PO SCH (09:00)
[2018-05-04] MEDS ORDERED: Ascorbic Acid 500 MG Tablet PO SCH (09:00)
--- NOTE | 2018-05-04 09:25 | P.PN ---
Subjective Interval history: Patient is a very pleasant 67-year-old female with known history of hypertension , GERD, hypothyroidism, rheumatoid arthritis on methotrexate, who is admitted under Dr. Gagnon service today and underwent left complete total knee replacement. Patient has history of knee replacement in 2006. Patient apparently has been having increasing pain on this knee for the past couple of months now and on outpatient evaluation was noted to be bone to bone. Increasing difficulty in ambulation and mainly pain which prompted the surgery. Patient currently seen postop in her room is awake alert no complaints of pain at present. Very motivated with physical therapy. States her primary care physician is Dr. Wadsworth from [place]. She has history of rheumatoid arthritis followed by Dr. Boyle.. She is on methotrexate 6 pills once a week and has been on hold prior to surgery. She is also taking 2 pain meds at home for pain control History of smoking quit 11 years ago very occasional rare alcohol use, history of hysterectomy. 05/04: Seen in her bedroom already recommended for discharge by Attending physician, no further recommendations by medical team no nausea, vomit or diarrhea, discussed with patient about weight loss warranted for her to improve her Joint disease. Physical Exam Vital signs: Vital Signs 05/03/18 09:40 05/03/18 13:23 05/03/18 13:30 Temperature 97.6 F Pulse Rate 68 66 67 Respiratory Rate 16 18 18 Blood Pressure 117/63 114/63 111/61 Pulse Oximetry 97 95 98 05/03/18 13:45 05/03/18 14:00 05/03/18 14:15 Temperature Pulse Rate 68 66 66 Respiratory Rate 18 18 18 Blood Pressure 115/71 125/64 131/69 Pulse Oximetry 98 95 94 L 05/03/18 14:22 05/03/18 14:30 05/03/18 15:00 Temperature 98.3 F Pulse Rate 66 67 Respiratory Rate 19 19 Blood Pressure 139/67 136/68 Pulse Oximetry 100 97 97 05/03/18 19:35 05/04/18 00:15 05/04/18 04:50 Temperature 97.9 F 97.6 F 97.6 F Pulse Rate 79 75 72 Respiratory Rate 17 17 16 Blood Pressure 130/70 140/69 138/65 Pulse Oximetry 94 L 95 95 05/04/18 08:00 Temperature 98.0 F Pulse Rate 79 Respiratory Rate 17 Blood Pressure 142/72 H Pulse Oximetry 95 Intake & Output 05/03/18 05/04/18 05/04/18 18:59 06:59 18:59 Intake Total 1817.04 / 1817.04 770 / 770 Output Total 220 / 220 Balance 1597.04 / 1597.04 770 / 770 Weight 85.2 kg 85.2 kg Intake: IV 1317.04 / 1317.04 50 / 50 LR 1000 mL Inj 1,000 ML @ 30 1000 / 1000 mls/hr IV.CONT .Q24H [facility] Rx#: [id number] Cyklokapron Inj 852 MG In NS 217.04 / 217.04 Inj 100 ML @ 200 mls/hr IV.SIG ONCE [facility] Rx#:[id number] Ancef 1 GM Premix Inj 1 gm In 50 / 50 50 / 50 50 ml @ 100 mls/hr IV.SIG Q6H [facility] Rx#:[id number] Ancef 2 GM Premix Inj 2 gm In 50 / 50 50 ml @ 100 mls/hr IV.SIG JAVA JSF DEVELOPER [facility] Rx#:[id number] Oral 720 / 720 Anesthesia Amount 500 / 500 Output: Estimated Blood Loss 150 / 150 Wound Drainage 70 / 70 # 1 Left Knee Hemovac 70 / 70 Other: # Voids 3 Date of Last Bowel Movement 05/02/18 Weight On Admission 85.2 kg Narrative: Awake alert oriented x3 not in any form of distress blood pressure 131/68 heart rate of 69 temperature 98.3 HEENT exam anicteric sclerae pink palpebral conjunctiva moist oral mucosa Neck supple no nuchal rigidity Bilateral breath sounds equal no rales no wheezes Regular rhythm Abdomen is soft nontender with good bowel sounds Extremities. Left knee with postop dressing in place Moves both feet equally. Grossly no sensory deficit gait testing deferred Results - Labs CBC & Chem 7: 05/04/18 07:05 Laboratory Results - last 24 hr 05/03/18 05/04/18 08:31 07:05 Hgb 12.0 Hct 34.3 L Blood Type Recheck Required Antibody Screen Negative - Imaging Impressions Knee X-Ray 05/03/18 09:30 CONCLUSION: Left knee arthroplasty. - Procedures Left total knee arthroplasty using [place] Triathlon prosthesis (uncemented) on 05/03/2018. Assessment and Plan - Plan 67-year-old female Status post left total knee replacement Management per orthopedic surgery. Pain management per primary service PT daily, okay to discharge from Orthopedic client renewal specialist History of hypertension Mild Uncontrol due to pain. continue on lisinopril 20 mg at bedtime. Furosemide 20 mg daily. Potassium supplements History of hypothyroidism. Continue on Synthroid 112 mcg daily GERD continue on omeprazole 20 mg twice a day History of rheumatoid arthritis on methotrexate once a week as OP Continue on prednisone 5 mg daily maintenance dose. Outpatient follow-up with Dr. Cali - her nurse anesthetist Obesity strongly recommended diet and exercise. DVT prophylaxis aspirin 81 mg twice daily per orthopedic service Signed off the case. Code Status: Full code. Discussed Condition With: Patient and Nurse Miss León Discharge Planning: Hospitalist clear for discharge.
[2018-05-04] MEDS: Senna/Docusate Sodium 8.6/50 MG Tablet PO SCH (10:20)
[2018-05-04] MEDS: Pantoprazole Sodium 20 MG DR Tablet PO SCH (10:21)
== END 2018-05-04 17:00 | disposition home or self-care (01) ==
LOC: HSDC 07:52 → HSDI 09:29 → INTOOBSV 09:29 → EDSTATUS 10:30 → N06 15:27
PROVIDERS: ADMIT Orthopaedic Surgery; ATTEND Orthopaedic Surgery